=== PATIENT | male | born 1945 | race Caucasian/White ===

== ENCOUNTER 2018-06-19 19:05 | Outpatient (REF) | payer MEDICARE, BC, SELFPAY ==
[2018-06-19 20:04] LABS: HCT 40.6 % (40.0-50.0); Mean Corpuscular Hemoglobin 28.3 pg (27.0-33.0); Mean Corpuscular Volume 88.5 fL (80-95); Mean Platelet Volume 10.6 fL (8.0-11.0); Platelet Count 226 x1000/uL (130-400); RBC 4.59 m/cumm (4.50-6.00); RBC Distribution Width 13.9 % (11.8-14.1); White Blood Cell Count 5.43 k/cumm (4.4-10.8)
[2018-06-19 20:10] LABS: ALT 22 U/L (12-78); AST 16 U/L (15-37); Albumin 4.2 g/dL (3.4-5.0); Alkaline Phosphatase 69 U/L (46-116); Anion Gap 9.6 mmol/L (3-11); BUN 36 mg/dL (7-18); Bilirubin, Total 0.7 mg/dL (0.2-1.0); CO2 26.4 mmol/L (21.0-32.0); Chloride 101 mmol/L (98-107); Estimated GFR 53.96 (mL/min/1.73m2); Glucose 164 mg/dL (70-100); LDL CHOLESTEROL 69 mg/dL (<100); Potassium 4.7 mmol/L (3.5-5.1); Sodium 137 mmol/L (136-145); Total Protein 7.4 g/dL (6.4-8.2)
== END 2018-06-19 19:25 ==
LOC: NCHCN 19:05
PROVIDERS: PCP Physician Assistant; Visit Provider Internal Medicine
DX: E11.9 Type 2 diabetes mellitus without complications (principal); I10 Essential (primary) hypertension; F32.9 Major depressive disorder, single episode, unspecified
CPT/HCPCS: 80053; 83721; 85027

== ENCOUNTER 2018-10-19 20:29 | Outpatient (REF) | payer MEDICARE, BC, SELFPAY ==
[2018-10-19 20:04] LABS: HCT 34.7 % (40.0-50.0); HGB 10.8 g/dL (13.5-17.5); Mean Corp. HGB Concentration 31.1 g/dL (32.0-36.0); Mean Corpuscular Hemoglobin 26.8 pg (27.0-33.0); Mean Corpuscular Volume 86.1 fL (80-95); Mean Platelet Volume 9.9 fL (8.0-11.0); Platelet Count 308 x1000/uL (130-400); RBC 4.03 m/cumm (4.50-6.00); RBC Distribution Width 13.3 % (11.8-14.1); White Blood Cell Count 6.06 k/cumm (4.4-10.8)
[2018-10-19 20:37] LABS: ALT 17 U/L (12-78); AST 15 U/L (15-37); Albumin 3.6 g/dL (3.4-5.0); Alkaline Phosphatase 80 U/L (46-116); Anion Gap 8.5 mmol/L (3-11); BUN 26 mg/dL (7-18); Bilirubin, Total 0.8 mg/dL (0.2-1.0); CO2 26.5 mmol/L (21.0-32.0); CREATININE 1.14 mg/dL (0.70-1.30); Calcium 8.9 mg/dL (8.5-10.1); Chloride 99 mmol/L (98-107); Glucose 172 mg/dL (70-100); Potassium 4.8 mmol/L (3.5-5.1); Sodium 134 mmol/L (136-145); TSH 2.53 uIU/mL (0.358-3.74); Total Protein 7.1 g/dL (6.4-8.2); Uric Acid 4.4 mg/dL (3.5-7.2)
[2018-10-19 21:01] LABS: Hemoglobin A1C 7.4 % (4.5-6.2)
[2018-10-19 21:10] LABS: ESR 77 MM/HR (1-20)
[2018-10-21 10:12] LABS: Rheumatoid Factor <8 IU/mL (<12.5)
== END 2018-10-19 20:49 ==
LOC: NCHCN 20:29
PROVIDERS: PCP Physician Assistant; Visit Provider Internal Medicine
DX: R55 Syncope and collapse (principal); F43.10 Post-traumatic stress disorder, unspecified; M12.831 Other specific arthropathies, not elsewhere classified, right wrist; R53.83 Other fatigue; E11.9 Type 2 diabetes mellitus without complications
CPT/HCPCS: 80053; 85027; 85652; 83036; 84443; 84550; 86431

== ENCOUNTER 2018-11-02 12:01 | Outpatient (REF) | payer MEDICARE, BC, SELFPAY ==
[2018-11-02 19:56] LABS: HGB 12.2 g/dL (13.5-17.5); Mean Corp. HGB Concentration 32.1 g/dL (32.0-36.0); Mean Corpuscular Hemoglobin 27.2 pg (27.0-33.0); Mean Corpuscular Volume 84.8 fL (80-95); Mean Platelet Volume 10.2 fL (8.0-11.0); Platelet Count 327 x1000/uL (130-400); RBC 4.48 m/cumm (4.50-6.00); RBC Distribution Width 14.1 % (11.8-14.1); White Blood Cell Count 6.49 k/cumm (4.4-10.8)
[2018-11-02 20:17] LABS: Anion Gap 10.1 mmol/L (3-11); BUN 37 mg/dL (7-18); CO2 25.9 mmol/L (21.0-32.0); CREATININE 1.19 mg/dL (0.70-1.30); Calcium 8.8 mg/dL (8.5-10.1); Chloride 100 mmol/L (98-107); Glucose 152 mg/dL (70-100); Potassium 4.5 mmol/L (3.5-5.1); Sodium 136 mmol/L (136-145)
[2018-11-02 20:45] LABS: ESR 19 MM/HR (1-20)
== END 2018-11-02 12:21 ==
LOC: NCHCN 12:01
PROVIDERS: PCP Physician Assistant; Visit Provider Internal Medicine
DX: G47.33 Obstructive sleep apnea (adult) (pediatric) (principal); M35.3 Polymyalgia rheumatica; S06.0X0S Concussion without loss of consciousness, sequela
CPT/HCPCS: 80048; 85027; 85652

== ENCOUNTER 2019-11-25 16:56 | Outpatient (REF) | payer MEDICARE, BC, SELFPAY ==
[2019-11-25 20:50] LABS: COMMENT (LAB VIEW ONLY) 76.45 mg/dL
== END 2019-11-25 17:16 ==
LOC: NCHCN 16:56
PROVIDERS: PCP Physician Assistant; Visit Provider Internal Medicine
DX: M35.3 Polymyalgia rheumatica (principal); I10 Essential (primary) hypertension; E11.9 Type 2 diabetes mellitus without complications; M12.831 Other specific arthropathies, not elsewhere classified, right wrist
CPT/HCPCS: 82043; 82570

== ENCOUNTER 2020-11-24 17:45 | Outpatient (REF) | payer MEDICARE, BC, SELFPAY ==
[2020-11-24 18:59] LABS: HCT 36.3 % (40.0-50.0); HGB 11.7 g/dL (13.5-17.5); MCH 28.4 pg (27.0-33.0); MCHC 32.2 % (32.0-36.0); MCV 88.1 fL (80-95); MPV 9.9 fL (8.0-11.0); Platelet Count 239 10^3/uL (130-400); RBC 4.12 10^6/uL (4.36-5.78); RDW 13.8 % (11.8-14.1); RDW-SD 44.8 fL; WBC 5.41 10^3/uL (4.4-10.8)
[2020-11-24 19:06] LABS: ESR 13 mm/hr (0-20)
[2020-11-24 19:27] LABS: ALT 27 U/L (16-63); Anion Gap 7.2 mmol/L (3-11); BUN 34 mg/dL (7-18); CO2 27.8 mmol/L (21.0-32.0); CREATININE 1.4 mg/dL (0.70-1.30); Chloride 102 mmol/L (98-107); Estimated GFR 49.14 (mL/min/1.73m2); Glucose 92 mg/dL (74-106); LDL CHOLESTEROL 58 mg/dL (<100); Potassium 4.5 mmol/L (3.5-5.1); Sodium 137 mmol/L (136-145)
== END 2020-11-24 17:46 | disposition home or self-care (01) ==
LOC: NCHCN 17:45
PROVIDERS: PCP Physician Assistant; Visit Provider Internal Medicine
DX: E11.9 Type 2 diabetes mellitus without complications (principal); I10 Essential (primary) hypertension; N18.30 Chronic kidney disease, stage 3 unspecified; F43.10 Post-traumatic stress disorder, unspecified
CPT/HCPCS: 80048; 83721; 85027; 85652; 84460

== ENCOUNTER 2021-01-24 18:10 | Outpatient (REF) | payer MEDICARE, BC, SELFPAY ==
[2021-01-26 10:19] LABS: COVID-19 RT-PCR UVMMC Result Negative (Negative)
== END 2021-01-24 18:11 | disposition home or self-care (01) ==
LOC: NCHCN 18:10
PROVIDERS: PCP Physician Assistant; Visit Provider Physician Assistant
DX: R05 Cough (principal); Z20.822 Contact with and (suspected) exposure to COVID-19
CPT/HCPCS: U0003; U0005

== ENCOUNTER 2022-02-28 11:55 | Outpatient (REF) | payer MEDICARE, BC, SELFPAY ==
[2022-02-28 19:31] LABS: HCT 38.3 % (40.0-50.0); HGB 12.5 g/dL (13.5-17.5); MCH 29.1 pg (27.0-33.0); MCHC 32.6 % (32.0-36.0); MCV 89 fL (80-95); MPV 9.9 fL (8.0-11.0); Platelet Count 190 10^3/uL (130-400); RDW 13.4 % (11.8-14.1); RDW-SD 43.6 fL; WBC 5.36 10^3/uL (4.4-10.8)
[2022-02-28 19:55] LABS: ALT 28 U/L (16-63); AST 22 U/L (15-37); Albumin 3.5 g/dL (3.4-5.0); Alkaline Phosphatase 81 U/L (46-116); Anion Gap 8.7 mmol/L (3-11); BUN 33 mg/dL (7-18); Bilirubin, Total 0.6 mg/dL (0.2-1.0); CO2 25.3 mmol/L (21.0-32.0); CREATININE 1.4 mg/dL (0.70-1.30); Calcium 9.1 mg/dL (8.5-10.1); Calculated LDL 60 mg/dL (<100); Chloride 98 mmol/L (98-107); Cholesterol 159 mg/dL (<200); Estimated GFR 51.45 (mL/min/1.73m2); Glucose 128 mg/dL (74-106); HDL Cholesterol 49 mg/dL (40-60); Sodium 132 mmol/L (136-145); Total Protein 7.2 g/dL (6.4-8.2); Triglyceride 252 mg/dL (<150)
[2022-02-28 20:30] LABS: Creatine Kinase 126 U/L (39-308)
[2022-03-01 20:07] LABS: Albumin, Ur < 0.6 mg/dL (See Note); Creatinine, Ur 69.8 mg/dL (See Note)
== END 2022-02-28 11:56 | disposition home or self-care (01) ==
LOC: NCHCN 11:55
PROVIDERS: PCP Physician Assistant; Visit Provider Internal Medicine
DX: E10.311 Type 1 diabetes mellitus with unspecified diabetic retinopathy with macular edema (principal); U07.1 COVID-19; R53.83 Other fatigue; M70.61 Trochanteric bursitis, right hip
CPT/HCPCS: 80053; 80061; 82550; 85027; 82043; 82570; 84443

== ENCOUNTER 2022-03-13 22:17 | Outpatient (REF) | payer MEDICARE, BC, SELFPAY ==
[2022-03-13 21:32] LABS: Iron 78 ug/dL (65-175); Total Iron Binding Capacity 265 ug/dL (250-450); Transferrin Sat 29 % (20-55)
[2022-03-13 21:33] LABS: Creatinine,Urine 53.99 mg/dL; Sodium, Urine 80 mmol/L
[2022-03-13 21:42] LABS: Anion Gap 7.9 mmol/L (3-11); BUN 27 mg/dL (7-18); CO2 26.1 mmol/L (21.0-32.0); CREATININE 1.1 mg/dL (0.70-1.30); Calcium 9.4 mg/dL (8.5-10.1); Chloride 100 mmol/L (98-107); Estimated GFR 68.71 (mL/min/1.73m2); Ferritin 179 ng/mL (26-388); Folate 6.4 ng/mL (8.6-20.0); Glucose 112 mg/dL (74-106); Potassium 4.7 mmol/L (3.5-5.1); Sodium 134 mmol/L (136-145)
[2022-03-13 21:47] LABS: Vitamin B12 268 pg/mL (193-986)
== END 2022-03-13 22:18 | disposition home or self-care (01) ==
LOC: NCHCN 22:17
PROVIDERS: PCP Physician Assistant; Visit Provider Internal Medicine
DX: D64.9 Anemia, unspecified (principal); E87.1 Hypo-osmolality and hyponatremia
CPT/HCPCS: 80048; 82565; 82607; 82728; 82746; 83540; 83550; 84300

== ENCOUNTER 2022-10-03 17:41 | Outpatient (REF) | payer MEDICARE, BC, SELFPAY ==
--- OUTSIDE RECORDS SUMMARY | 2022-10-03 17:44 | XMS_ITS | Continuity of Care Document ---
Author Name Unknown Organization [facility] Address [address] [place] [address] Care Team Providers Care Film Developer Name Role Phone Lane Severino Primary Care Physician Encounter [id number] Date(s): 06/14/22 - 06/14/[address] [id number] Discharge Disposition: Home or Self Care Attending Physician: Lane Severino MD Admitting Physician: Lane Severino MD Referring Physician: Lane Severino MD Allergies, Adverse Reactions, Alerts Substance Reaction Severity Status SHELLFISH DERIVED Unknown Active Social History Social History Type Response Sex Male Patient Care team information Personnel Name: Lane Severino MD Address: Address: [address] [address]
[2022-10-03 20:06] LABS: COMMENT (LAB VIEW ONLY) 43.05 mg/dL; Microalb ug/mg Crea 13.5 ug/mg Cr
[2022-10-03 20:58] LABS: COMMENT (LAB VIEW ONLY) 44.15 mg/dL; PROTEIN < 6.0 mg/dL
== END 2022-10-03 17:42 | disposition home or self-care (01) ==
LOC: NCHCN 17:41
PROVIDERS: PCP Physician Assistant; Visit Provider Internal Medicine
DX: E10.311 Type 1 diabetes mellitus with unspecified diabetic retinopathy with macular edema (principal)
CPT/HCPCS: 82043; 82565; 82570; 84156

== ENCOUNTER 2023-04-03 17:48 | Outpatient (REF) | payer MEDICARE, BC, SELFPAY ==
[2023-04-03 20:03] LABS: ALT 25 U/L (16-63); Anion Gap 9.2 mmol/L (3-11); BUN 35 mg/dL (7-18); CO2 24.8 mmol/L (21.0-32.0); CREATININE 1.4 mg/dL (0.70-1.30); Calcium 9.7 mg/dL (8.5-10.1); Calculated LDL 65 mg/dL (<100); Chloride 99 mmol/L (98-107); Cholesterol 153 mg/dL (<200); Creatine Kinase 305 U/L (39-308); Estimated GFR 51.13 (mL/min/1.73m2); Glucose 128 mg/dL (74-106); HDL Cholesterol 52 mg/dL (40-60); Potassium 4.5 mmol/L (3.5-5.1); Sodium 133 mmol/L (136-145); Triglyceride 184 mg/dL (<150)
== END 2023-04-03 17:49 | disposition home or self-care (01) ==
LOC: NCHCN 17:48
PROVIDERS: PCP Physician Assistant; Visit Provider Internal Medicine
DX: E11.39 Type 2 diabetes mellitus with other diabetic ophthalmic complication (principal); I10 Essential (primary) hypertension
CPT/HCPCS: 80048; 80061; 82550; 84460

== ENCOUNTER 2024-03-10 17:22 | Outpatient (REF) | payer MEDICARE, BC, SELFPAY ==
[2024-03-10 19:30] LABS: HCT 41.4 % (40.0-50.0); HGB 13.5 g/dL (13.5-17.5); MCHC 32.6 % (32.0-36.0); MCV 89 fL (80-95); MPV 9.7 fL (8.0-11.0); Platelet Count 256 10^3/uL (130-400); RBC 4.66 10^6/uL (4.36-5.78); RDW 13.6 % (11.8-14.1); RDW-SD 44.4 fL; WBC 5.44 10^3/uL (4.4-10.8)
[2024-03-10 19:42] LABS: ALT 24 U/L (16-63); BUN 30 mg/dL (7-18); CREATININE 1.3 mg/dL (0.70-1.30); Calcium 9.4 mg/dL (8.5-10.1); Chloride 102 mmol/L (98-107); Creatine Kinase 135 U/L (39-308); Estimated GFR 55.53 (mL/min/1.73m2); Glucose 110 mg/dL (74-106); Potassium 4.7 mmol/L (3.5-5.1); Sodium 135 mmol/L (136-145)
== END 2024-03-10 17:23 | disposition home or self-care (01) ==
LOC: NCHCN 17:22
PROVIDERS: PCP Physician Assistant; Visit Provider Internal Medicine
DX: N18.9 Chronic kidney disease, unspecified
CPT/HCPCS: 80048; 82550; 85027; 84460

== ENCOUNTER 2024-06-10 16:07 | Outpatient (REF) | payer MEDICARE, BC, SELFPAY ==
[2024-06-10 19:47] LABS: COMMENT (LAB VIEW ONLY) 55.33 mg/dL; Microalb ug/mg Crea 20.8 ug/mg Cr
== END 2024-06-10 16:08 | disposition home or self-care (01) ==
LOC: NCHCN 16:07
PROVIDERS: PCP Physician Assistant; Visit Provider Internal Medicine
DX: E11.9 Type 2 diabetes mellitus without complications (principal)
CPT/HCPCS: 82043; 82570

== ENCOUNTER 2024-12-22 19:48 | Outpatient (REF) | payer MEDICARE, BC, SELFPAY ==
[2024-12-22 20:28] LABS: HCT 40.2 % (40.0-50.0); HGB 13.4 g/dL (13.5-17.5); MCH 28.8 pg (27.0-33.0); MCHC 33.3 % (32.0-36.0); MCV 87 fL (80-95); MPV 9.4 fL (8.0-11.0); Platelet Count 265 10^3/uL (130-400); RBC 4.65 10^6/uL (4.36-5.78); RDW 13.3 % (11.8-14.1); RDW-SD 41.6 fL; WBC 4.77 10^3/uL (4.4-10.8)
[2024-12-22 20:42] LABS: ALT 29 U/L (16-63); AST 23 U/L (15-37); Albumin 4.0 g/dL (3.4-5.0); Alkaline Phosphatase 73 U/L (46-116); Anion Gap 8.0 mmol/L (3-11); BUN 24 mg/dL (7-18); Bilirubin, Total 0.8 mg/dL (0.2-1.0); CO2 26.0 mmol/L (21.0-32.0); Calcium 8.9 mg/dL (8.5-10.1); Calculated LDL 49 mg/dL (<100); Chloride 96 mmol/L (98-107); Cholesterol 119 mg/dL (<200); Estimated GFR 67.44 (mL/min/1.73m2); Glucose 117 mg/dL (74-106); HDL Cholesterol 56 mg/dL (>or=40); Potassium 4.4 mmol/L (3.5-5.1); Sodium 130 mmol/L (136-145); Total Protein 7.3 g/dL (6.4-8.2); Triglyceride 71 mg/dL (<150)
== END 2024-12-22 19:49 | disposition home or self-care (01) ==
LOC: NCHCN 19:48
PROVIDERS: PCP Physician Assistant; Visit Provider Internal Medicine
DX: N18.30 Chronic kidney disease, stage 3 unspecified (principal); E78.5 Hyperlipidemia, unspecified
CPT/HCPCS: 80053; 80061; 85027